=== PATIENT | female | born 1975 | race Caucasian/White ===

== ENCOUNTER 2020-10-08 09:59 | Emergency (ER) | payer OTHER, SELFPAY ==
[2020-10-08 10:45] VITALS: BP 122/86; PULSE 85; RESP 18; TEMP 36.5; O2SAT 97; BMI 27.9
[2020-10-08 11:20] VITALS: BP 124/80; PULSE 90; RESP 18; O2SAT 99
--- NOTE | 2020-10-08 11:27 | HMH.EDGENADL ---
ED Disposition Clinical Impression: Viral upper respiratory infection Disposition: Home, Self-Care Condition on Discharge: Good Additional Instructions: Call back to the emergency department in 3 hrs to obtain your COVID-19 test result. Quarantine yourself until you obtain your result. Tylenol or ibuprofen for pain or fever. Rest, drink plenty of fluids. Referrals: Deandre Benítez [Primary Care Provider] - - Critical Care Critical Care Time: No Attestation: On 10/08/20, the high probability of a clinically significant, sudden or life threatening deterioration of the following system(s) required my full and direct attention, intervention and personal management. The time I documented below is in addition to time spent performing reported procedures but includes the following listed in this critical care notation. Medical Decision Making - Nba Inquiry Pt receiving controlled substance: No Vital Signs: 10/08/20 10:45 10/08/20 11:20 10/08/20 11:41 Temperature 97.7 F Temperature Source Oral Pulse Rate Pulse Rate [Right Radial] 85 90 71 Respiratory Rate 18 18 18 Blood Pressure Blood Pressure [Right Arm] 122/86 124/80 104/81 L Blood Pressure Mean [Right Arm] 98 94 88 Blood Pressure Source Blood Pressure Source [Right Arm] Automatic Cuff Blood Pressure Position Blood Pressure Position [Right Arm] Sitting 02 Sat by Pulse Oximetry 97 99 95 Oxygen Delivery Method Room Air Room Air Room Air 10/08/20 13:08 Temperature 97.7 F Temperature Source Oral Pulse Rate 78 Pulse Rate [Right Radial] Respiratory Rate 20 Blood Pressure 132/90 Blood Pressure [Right Arm] Blood Pressure Mean [Right Arm] Blood Pressure Source Automatic Cuff Blood Pressure Source [Right Arm] Blood Pressure Position Sitting Blood Pressure Position [Right Arm] 02 Sat by Pulse Oximetry Oxygen Delivery Method Room Air - Lab Data Lab results reviewed: Yes: I reviewed the patient's lab results. Lab Results 10/08/20 11:49: Influenza Type A Ag Negative, Influenza Type B Ag Negative 10/08/20 11:49: Group A Strep Rapid Negative Orders (Tests/Meds): ORDERS Category Date Time Status Strep Screen Confirmation Stat Micro 10/08/20 11:49 Received - Radiology Data #1 Image(s): Chest Image Reviewed: Yes I have reviewed radiologist's interpretation PROCEDURE: XR CHEST 2V CLINICAL HISTORY: cough, soa current smoker COMPARISON: No exams were available for comparison FINDINGS: The cardiomediastinal silhouette and pulmonary vascularity are within normal limits. The lungs are clear without infiltrates, suspicious nodules, or pleural effusions. There is a small nodular density left lateral chest likely an evolving partially calcified granuloma. There are tiny partially calcified left hilar nodes. No acute bony abnormalities. IMPRESSION: No acute findings. Dictated by: Dr. Kirill Villalta MD 10/08/2020 12:24 Dr. Kirill Villalta MD in [place] 10/08/2020 12:24 General Adult HPI - General Chief complaint: Weakness Stated complaint: weak, sore throat, Time Seen by Provider: 10/08/20 11:28 Mode of Arrival: Ambulatory Limitations: No Limitations Description of Symptoms (Recalled from ER Triage Doc. by RN): Pt reports generalized weakness, no energy since Friday of last week, reports began having sore throat today. States has had periods of waking up SOA in the middle of the night. No distress noted. - History of Present Illness HPI narrative: Began getting ill on Friday 4 days ago. Chief complaint is a sore throat. Also has a cough, intermittent shortness of breath, diarrhea, headache, body aches. Says she has no way to check her temperature. No known exposure to COVID-19 or any other illnesses. She was tested for COVID-19 a couple of months ago because her son was getting a surgical procedure, otherwise has not been tested. - Related Data Allergies Allergy/AdvReac T
--- NOTE | 2020-10-08 11:37 | XR_ITS ---
PROCEDURE: XR CHEST 2V CLINICAL HISTORY: cough, soa current smoker COMPARISON: No exams were available for comparison FINDINGS: The cardiomediastinal silhouette and pulmonary vascularity are within normal limits. The lungs are clear without infiltrates, suspicious nodules, or pleural effusions. There is a small nodular density left lateral chest likely an evolving partially calcified granuloma. There are tiny partially calcified left hilar nodes. No acute bony abnormalities. IMPRESSION: No acute findings. Dictated by: Dr. Kirill Villalta MD 10/08/2020 12:24 Dr. Kirill Villalta MD in [place] 10/08/2020 12:24
[2020-10-08 11:41] VITALS: BP 104/81; PULSE 71; RESP 18; O2SAT 95
--- NOTE | 2020-10-08 11:51 | PC.NURSE ---
swabs sent to lab.
[2020-10-08 12:05] LABS: Strep Scrn Group A (Rapid) Negative (Negative)
[2020-10-08 13:08] VITALS: BP 132/90; PULSE 78; RESP 20; TEMP 36.5; O2SAT 95
== END 2020-10-08 13:11 | disposition home or self-care (01) ==
PROVIDERS: Emergency Provider Emergency Medicine; PCP Pediatrics
DX: Z20.822 Contact with and (suspected) exposure to COVID-19 (principal); J06.9 Acute upper respiratory infection, unspecified
CPT/HCPCS: 71046; 87275; 87276; 87430; 99283; U0003

== ENCOUNTER → 2020-10-08 12:55 | Outpatient (CLI) | payer OTHER, SELFPAY ==
[2020-10-08 14:31] LABS: Microscopic, Urine URINE MICROSCOPIC (MICROSCOPIC)
[2020-10-08 14:41] LABS: Chloride 105 mmol/L (98-107); Potassium 3.8 mmoL/L (3.5-5.1); Sodium 138 mmol/L (136-145)
[2020-10-08 14:42] LABS: Appearance,Urine CLEAR (Clear); Bilirubin,Urine Negative (Negative); Blood, Urine Negative (Negative); Color,Urine YELLOW (Yellow); Glucose,Urine (UA) Negative (Negative); Ketones,Urine Negative (Negative); Leukocyte Esterase,Urine Negative (Negative); Nitrate,Urine Negative (Negative); PH,Urine 6.5 (5.0-8.5); Protein,Urine Negative (Negative); Specific Gravity, Urine 1.015 (1.005-1.030); Urobilinogen,Urine 0.2 EU/dl (0.2)
[2020-10-08 14:44] LABS: Alanine Aminotransferase 17 U/L (12-78); Albumin Level 4.6 g/dl (3.5-5.0); Albumin/Globulin Ratio 1.4 (1.1-1.8); Alkaline Phosphatase 82 U/L (38-126); Anion Gap 10.8 mEq/L (5-15); Aspartate Amino Transferase 25 U/L (14-36); Bilirubin,Total 0.5 mg/dl (0.2-1.3); Blood Urea Nitrogen 8 mg/dl (7-17); Carbon Dioxide 26 mmol/L (22.0-30.0); Cholesterol 212 mg/dl (140-200); Estimated Glomerular Filt Rate 110 ml/min (>60); GFR (African American) 133 ML/MIN (>60); Globulin 3.2 g/dL (1.3-3.2); Total Protein,Serum 7.8 g/dl (6.3-8.2); Triglycerides 71 mg/dl (30-150); VLDL Cholesterol 14 mg/dL (0-40)
[2020-10-08 14:45] LABS: Calcium 9.5 mg/dl (8.4-10.2); Glucose 90 mg/dl (74-100); HDL Cholesterol 70 mg/dl (40-60)
[2020-10-08 14:52] LABS: RBC,Urine Occasional #/hpf (0-3); Squamous Epithelial Cell,Urine Occasional #/hpf (0-5)
[2020-10-08 14:56] LABS: Direct LDL Cholesterol 105.31 mg/dL (100-129)
[2020-10-08 14:57] LABS: Basophils # 0.1 K/mm3 (0-0.2); Basophils % 0.8 % (0.1-2.0); Eosinophils # 0.1 K/mm3 (0.0-0.4); Eosinophils % 1.2 % (0.1-12.0); Hematocrit 43.6 % (37.0-47.0); Hemoglobin 14.9 g/dL (12.2-16.2); Lymphocytes # 2.1 K/mm3 (0.7-4.5); Mean Corpuscular HGB Conc 34.2 g/dL (31.8-35.4); Mean Corpuscular Hemoglobin 32.5 pg (27.0-31.2); Mean Platelet Volume 8.4 fl (7.4-10.4); Monocytes # 0.4 K/mm3 (0.1-1.0); Monocytes % 5.8 % (1.7-9.3); Neutrophils # 4.3 K/mm3 (1.8-7.8); Neutrophils % 62.1 % (37.0-80.0); Platelet Count 333 K/mm3 (142-424); Red Blood Count 4.59 M/mm3 (4.20-5.40); Red Cell Distribution Width 13.2 % (11.5-17.5)
[2020-10-08 15:46] LABS: 25-OH Vitamin D, Total 28.8 ng/mL (30-100)
== END ==
PROVIDERS: PCP Pediatrics; Visit Provider Pediatrics
DX: R53.83 Other fatigue (principal); I10 Essential (primary) hypertension; E55.9 Vitamin D deficiency, unspecified; R35.1 Nocturia
CPT/HCPCS: 80053; 80061; 81001; 82306; 84443; 85025

== ENCOUNTER → 2021-03-15 07:55 | Outpatient (CLI) | payer OTHER, SELFPAY ==
--- NOTE | 2021-03-15 08:01 | XR_ITS ---
PROCEDURE: XR SHOULDER RT MIN 2V CLINICAL INDICATION: right shoulder pain COMPARISON: No exams were available for comparison FINDINGS: No fracture or dislocation. No lytic or blastic change. There is normal mineralization. The joint spaces are well-preserved. No significant degenerative/arthritic changes. No erosive changes evident. Other findings:None. IMPRESSION: No acute findings. Dictated by: Spencer Bradshaw MD 03/15/2021 08:41 Spencer Bradshaw MD in [place] 03/15/2021 08:41
== END ==
PROVIDERS: PCP Nurse Practitioner Family; Visit Provider Orthopaedic Surgery
DX: M25.511 Pain in right shoulder (principal)
CPT/HCPCS: 73030

== ENCOUNTER → 2021-03-17 07:43 | Outpatient (CLI) | payer OTHER, SELFPAY ==
--- NOTE | 2021-03-17 07:43 | MR_ITS ---
PROCEDURE INFORMATION: Exam: MR Right Upper Extremity Joint Without Contrast; Shoulder Exam date and time: 03/17/2021 7:43 AM Age: 45 years old Clinical indication: Pain and injury or trauma; Other: Jerking injury to RT arm; Sprain or strain; Right; Injury details: PT injured RT shoulder about 1 month ago her dog on a leash pulled the RT arm back too far. This is being done to evaluate rotator cuff. ; Additional info: Evaluate for rotator cuff tear TECHNIQUE: Imaging protocol: MR of the Right upper extremity without contrast. Exam focused on the shoulder. COMPARISON: CR XR SHOULDER RT MIN 2V 03/15/2021 8:13 AM FINDINGS: Bones/joints: No acute fracture. No dislocation. Early degenerative changes of acromioclavicular joint. Fluid: No significant joint effusion. Small to moderate fluid within subacromial-subdeltoid bursa. Glenoid labrum: No definite tear. Supraspinatus tendon: Moderate tendinosis. Probable 0.6 x 0.5 x 0.1 cm intrasubstance tear of posterior tendon at attachment on tuberosity. Infraspinatus tendon: Moderate tendinosis. No definite tear. Subscapularis tendon: Mild tendinosis. No definite tear. Teres minor tendon: No definite tear. Tendon of biceps brachii: Intact. Glenohumeral ligaments: Grossly intact. Muscles: Unremarkable. Soft tissues: Unremarkable. IMPRESSION: Rotator cuff tendinosis.
== END ==
PROVIDERS: PCP Nurse Practitioner Family; Visit Provider Orthopaedic Surgery Sports Medicine
DX: M25.511 Pain in right shoulder (principal)
CPT/HCPCS: 73221

== ENCOUNTER → 2021-09-05 17:49 | Outpatient (CLI) | payer OTHER, SELFPAY | PROVIDERS: PCP Emergency Medicine; Visit Provider Nurse Practitioner | DX: Z20.822 Contact with and (suspected) exposure to COVID-19 (principal) | CPT/HCPCS: C9803; U0003; U0005 ==

== ENCOUNTER → 2021-10-08 20:19 | Outpatient (CLI) | payer SELFPAY | PROVIDERS: Visit Provider Nurse Practitioner Family | DX: Z20.822 Contact with and (suspected) exposure to COVID-19 (principal) | CPT/HCPCS: C9803; U0003; U0005 ==

== ENCOUNTER 2021-10-15 03:42 | Emergency (ER) | payer SELFPAY ==
[2021-10-15 03:43] VITALS: BP 155/93; PULSE 96; RESP 16; TEMP 36.7; O2SAT 98; BMI 34.7
--- NOTE | 2021-10-15 04:07 | HMH.EDGENADL ---
ED Disposition Clinical Impression: Right ear pain Disposition: Home, Self-Care Condition on Discharge: Good Additional Instructions: Please take nasal decongestant at home, you can chew gum to assist with the pain, pain gets worse, you are having issues with numbness, tingling, weakness, worsening pain please return to the ED. Referrals: Servando Yung MD [Primary Care Provider] - - Critical Care Critical Care Time: No Attestation: On 10/15/21, the high probability of a clinically significant, sudden or life threatening deterioration of the following system(s) required my full and direct attention, intervention and personal management. The time I documented below is in addition to time spent performing reported procedures but includes the following listed in this critical care notation. Medical Decision Making - Medical Records Medical records reviewed: Yes: I reviewed the patient's medical records. - Nba Inquiry Pt receiving controlled substance: No Vital Signs: 10/15/21 03:43 Temperature 98.0 F Temperature Source Oral Pulse Rate [Right Radial] 96 H Respiratory Rate 16 Blood Pressure [Right Arm] 155/93 H Blood Pressure Mean [Right Arm] 113 Blood Pressure Source [Right Arm] Automatic Cuff Blood Pressure Position [Right Arm] Sitting 02 Sat by Pulse Oximetry 98 Oxygen Delivery Method Room Air Orders (Tests/Meds): ED MEDICATIONS Discontinued Medications Generic Name Dose Route Start Last Admin Trade Name Alexus PRN Reason Stop Dose Admin Ketorolac Tromethamine 15 mg 10/15/21 04:06 Ketorolac 30mg/Ml Vial IM 10/15/21 04:07 ONCE ONE Medical Decision Narrative: Patient is a 45-year-old female who presents to the ED today for evaluation of right-sided ear pain. Patient is well-appearing on initial evaluation, hypertensive but no other significant alterations in vital signs. Unclear etiology of the patient's pain as on exam there is no reena evidence of perforation of the eardrum, although had difficulty seeing the right lower quadrant, and there could be a microperforation of the area. Patient has cerumen in the proximal portion of the ear canal which is likely pushed back by Q-tip, canal is not erythematous or inflamed, there is no evidence of effusion posterior to the ear, there is no subcutaneous air along the neck, there is no pain over the great vessels of the neck, patient does not have any bruising over the right side of the face. We will administer 50 mg of IM Toradol, as patient is complaining of significant pain, will reassess. Toradol has assisted with patient pain, have discussed the usage of nasal decongestants, chewing gum in order to assist with eustachian tube dysfunction, not putting anything else in the ear, patient to follow-up with primary care, will return to the ED with any new or worsening symptoms, discussed with the patient that the only other work-up that we may be able to do would be a CT scan, however I did not believe it was a fever for full, patient is in agreement with this, but will return with worsening symptoms. General Adult HPI - General Chief complaint: Ear Stated complaint: Right earache Time Seen by Provider: 10/15/21 04:00 Mode of Arrival: Ambulatory Limitations: No Limitations Description of Symptoms (Recalled from ER Triage Doc. by RN): Pt reports waking at 2am with right ear pain. She says he had sneezed at some point yesterday and felt a pop in that ear. Pt says she has been dealing with a cold since friday. - History of Present Illness HPI narrative: Patient is a 45-year-old female presents the ED today with ear pain. Patient states that her ear began to hurt after a sneeze earlier today, states that it woke her up from sleep tonight with sharp pain around the ear on the right side, states that she has not had pain like this before, states that it is worse with jaw motion, states that she sneezes it hurts much worse. Patient states that she at
[2021-10-15 04:35] VITALS: BP 127/82; PULSE 84; RESP 16; TEMP 36.6; O2SAT 98
== END 2021-10-15 04:40 | disposition home or self-care (01) ==
PROVIDERS: Emergency Provider Student in an Organized Health Care Education/Training Program; PCP Emergency Medicine
DX: H92.01 Otalgia, right ear (principal); J45.909 Unspecified asthma, uncomplicated; F41.8 Other specified anxiety disorders; F17.210 Nicotine dependence, cigarettes, uncomplicated
CPT/HCPCS: 96372; 99281

== ENCOUNTER → 2021-10-25 16:51 | Outpatient (CLI) | payer OTHER, SELFPAY | PROVIDERS: Visit Provider Nurse Practitioner | DX: Z20.822 Contact with and (suspected) exposure to COVID-19 (principal) | CPT/HCPCS: C9803; U0003; U0005 ==

== ENCOUNTER 2022-05-01 11:19 | Emergency (ER) | payer BC, SELFPAY ==
--- NOTE | 2022-05-01 11:32 | HMH.EDUTC ---
[facility] Disposition Clinical Impression: Viral syndrome, Exposure to COVID-19 virus Disposition: Home, Self-Care Condition on Discharge: Good Instructions: DI for Viral Syndrome, DI for COVID-19 (Suspected or Confirmed ), Preventing the Spread of Coronavirus Discharge Instructions Additional Instructions: Drink plenty of fluids. Take tylenol or ibuprofen for pain or fever. Take the medications as directed. Follow up with your regular doctor. GO TO THE ER FOR ANY WORSENING SYMPTOMS Quarantine until you know the results of your covid-19 test. Notify your school or workplace of your results and follow their instructions regarding return to work/school. Prescriptions: Ondansetron [Zofran 4mg ODT] 4 mg PO Q8HP PRN #20 tab PRN Reason: Nausea Transmission Status: Received by [id number] Benzonatate [Benzonatate 100mg cap] 100 mg PO TIDP PRN #30 cap PRN Reason: Cough [id number] Referrals: Forrest Rodriguez MD [Primary Care Provider] - Forms: Work/School Release Time of Disposition: 11:55 Medical Decision Making - Medical Records Medical records reviewed: No: I reviewed the patient's medical records. - Nba Inquiry Pt receiving controlled substance: No Vital Signs: 05/01/22 11:39 05/01/22 12:02 Temperature 98.2 F 98.2 F Temperature Source Oral Pulse Rate 96 H Pulse Rate [Left] 96 H Respiratory Rate 18 18 Blood Pressure 120/75 Blood Pressure [Right Arm] 120/75 Blood Pressure Mean [Right Arm] 90 02 Sat by Pulse Oximetry 100 Orders (Tests/Meds): ORDERS Category Date Time Status Covid-19 Nasal PCR ([facility]) Routine Lab 05/01/22 11:34 Received [facility] HPI - General Stated complaint: covid test Time Seen by Provider: 05/01/22 11:33 - History of Present Illness Provider Complaint: She states that since yesterday she has had chills, low grade fever, body aches, and chest congestion with a nonproductive cough. - Related Data Previous Rx's Medication Instructions Recorded cefdinir 300 mg capsule 300 mg PO BID 10 Days #20 cap 10/15/21 hydrocodone 10 mg-acetaminophen 1 tab PO Q8H PRN #20 tab 11/09/21 325 mg tablet buspirone 15 mg tablet 15 mg PO BID #90 tab 11/24/21 amitriptyline 25 mg tablet See Rx Instructions .ROUTE 01/29/22 .COMPLEX #90 tab escitalopram oxalate 20 mg tablet See Rx Instructions .ROUTE 01/29/22 .COMPLEX #90 tab losartan 50 mg-hydrochlorothiazide See Rx Instructions .ROUTE 01/29/22 12.5 mg tablet .COMPLEX #90 tab estradiol 2 mg tablet See Rx Instructions .ROUTE 02/05/22 .COMPLEX #90 tablet Benzonatate [Benzonatate 100mg 100 mg PO TIDP PRN #30 cap 05/01/22 cap] Ondansetron [Zofran 4mg ODT] 4 mg PO Q8HP PRN #20 tab 05/01/22 Allergies Allergy/AdvReac Type Severity Reaction Status Date / Time No Known Allergies Allergy Verified 05/01/22 11:41 [facility] History - Hepatitis A Screen Attestation statement:: This patient has been screened for Hepatitis A risk factors. I have reviewed the patient's past medical history: Yes Medical History: Reports:: Anxiety, Asthma, Depression, Kidney Stones, Migraine Other Surgeries: Yes: Hysterectomy-Total Amputation: No Fractures: No - Social History Smoking Status: Current every day smoker Tobacco Type: cigarettes # Packs/Day (cigarettes): 1 Alcohol Intake: current Alcohol Intake Frequency:: a few times a week Substance Use Type: denies use Occupational Status: employed - Psychiatric History Pschychiatric History:: Reports:: Anxiety, Depression Family Hx:: Diabetes ROS Obtained: Yes All systems reviewed & no additional complaints - Constitutional Constitutional: Reports as per HPI - Eyes Eyes: Denies eye discharge - ENT Ears, Nose, Mouth, and Throat: Reports as per HPI - Cardiovascular Cardiovascular: Denies chest pain - Respiratory Respiratory: Reports chest congestion, Denies dyspnea, Denies stridor, Denies
[2022-05-01 11:39] VITALS: BP 120/75; PULSE 96; RESP 18; TEMP 36.8; O2SAT 100; BMI 33.2
[2022-05-01 12:02] VITALS: BP 120/75; PULSE 96; RESP 18; TEMP 36.8
== END 2022-05-01 12:07 | disposition home or self-care (01) ==
PROVIDERS: Emergency Provider Nurse Practitioner Family; PCP Family Medicine
DX: B34.9 Viral infection, unspecified (principal); R50.9 Fever, unspecified; R05.9 Cough, unspecified; R09.89 Other specified symptoms and signs involving the circulatory and respiratory systems; F17.210 Nicotine dependence, cigarettes, uncomplicated; Z20.822 Contact with and (suspected) exposure to COVID-19
CPT/HCPCS: 99212; C9803; G0463; U0003; U0005

== ENCOUNTER 2022-06-04 15:43 | Emergency (ER) | payer BC, SELFPAY ==
[2022-06-04 16:19] VITALS: BP 136/75; PULSE 105; RESP 16; TEMP 37.3; O2SAT 100; BMI 34.3
--- NOTE | 2022-06-04 16:19 | EXP.UTC ---
Discharge Plan Disposition Patient Disposition: Home, Self-Care Condition: Good Prescriptions Prescriptions: New benzonatate [benzonatate] 100 mg capsule 100 mg PO TIDP PRN (Reason: Cough) Qty: 30 0RF methylprednisolone 4 mg Tablets,Dose Pack 4 mg PO DIRECTED Qty: 21 0RF azithromycin [Zithromax] 250 mg tablet 250 mg PO UD DOSE PK Qty: 6 0RF Rx Instructions: Take two (2) tablets today, then one (1) tablet days #2 thru #5 No Action cefdinir 300 mg capsule 300 mg PO BID 10 Days Qty: 20 0RF estradiol 2 mg tablet See Rx Instructions .ROUTE .COMPLEX Qty: 90 2RF Dose Instruction: Take 1 tab once daily Rx Instructions: Take 1 tab once daily losartan-hydrochlorothiazide 50-12.5 mg tablet See Rx Instructions .ROUTE .COMPLEX Qty: 90 0RF Dose Instruction: TAKE ONE TABLET BY MOUTH DAILY Rx Instructions: TAKE ONE TABLET BY MOUTH DAILY escitalopram oxalate 20 mg tablet See Rx Instructions .ROUTE .COMPLEX Qty: 90 0RF Dose Instruction: TAKE ONE TABLET BY MOUTH DAILY Rx Instructions: TAKE ONE TABLET BY MOUTH DAILY amitriptyline 25 mg tablet See Rx Instructions .ROUTE .COMPLEX Qty: 90 0RF Dose Instruction: TAKE ONE TABLET BY MOUTH DAILY Rx Instructions: TAKE ONE TABLET BY MOUTH DAILY buspirone 15 mg tablet 15 mg PO BID Qty: 90 2RF hydrocodone-acetaminophen 10-325 mg tablet 1 tab PO Q8H PRN (Reason: pain) Qty: 20 0RF benzonatate 100 MG capsule 100 mg PO TIDP PRN (Reason: Cough) Qty: 30 0RF ondansetron 4 MG tablet,disintegrating 4 mg PO Q8HP PRN (Reason: Nausea) Qty: 20 0RF Referrals Follow up/Referrals: Forrest Rodriguez MD [Primary Care Provider] - See instructions Activity Restrictions/Add. Instructions Additional Instructions/Restrictions: Drink plenty of fluids. Take tylenol or ibuprofen for pain or fever. Take the medications as directed. Follow up with your regular doctor. GO TO THE ER FOR ANY WORSENING SYMPTOMS Quarantine until you know the results of your covid-19 test. Notify your school or workplace of your results and follow their instructions regarding return to work/school. Clinical Impressions Clinical Impression: Sinusitis, Bronchitis, Exposure to 2019 novel coronavirus Stand Alone Forms Stand Alone Forms: Work/School Release Instructions Patient Instructions: Sinusitis, DI for Sinusitis, Coronavirus Disease 2019, Preventing the Spread of Coronavirus Discharge Instructions Discharge ED Provider: Spencer Carrera [facility] HPI General Stated complaint: FEVER,SORE THROAT BODY ACHES Time Seen by Provider: 06/04/22 16:19 History of Present Illness Provider Complaint: She c/o sinus congestion, sore throat and malaise for the past 2 days. Related Data Previous Rx's Medication Instructions Recorded cefdinir 300 mg capsule 300 mg PO BID 10 days #20 caps 10/15/21 estradiol 2 mg tablet See Rx Instructions .Route 02/05/22 .COMPLEX #90 tabs benzonatate 100 mg capsule 100 mg PO TIDP PRN Cough #30 caps 05/01/22 ondansetron 4 mg disintegrating 4 mg PO Q8HP PRN Nausea #20 tabs 05/01/22 tablet amitriptyline 25 mg tablet See Rx Instructions .Route 05/13/22 .COMPLEX #90 tabs escitalopram oxalate 20 mg tablet See Rx Instructions .Route 05/13/22 .COMPLEX #90 tabs losartan 50 mg-hydrochlorothiazide See Rx Instructions .Route 05/13/22 12.5 mg tablet .COMPLEX #90 tabs buspirone 15 mg tablet 15 mg PO BID #90 tabs 05/21/22 hydrocodone 10 mg-acetaminophen 1 tab PO Q8H PRN pain #20 tabs 05/21/22 325 mg tablet azithromycin 250 mg tablet 250 mg PO UD DOSE PK #6 tabs 06/04/22 (Zithromax) benzonatate 100 mg capsule 100 mg PO TIDP PRN Cough #30 caps 06/04/22 methylprednisolone 4 mg tablets in 4 mg PO DIRECTED #21 tabs 06/04/22 a dose pack Allergies Allergy/AdvReac Type Severity Reaction Status Date / Time No Known Allergies Allergy Verified 06/04/22 16:21 [facility]
[2022-06-04 16:22] LABS: UTC Strep Screen (Rapid) Negative (Negative)
[2022-06-04 17:00] LABS: UTC Influenza A Antigen Negative (Negative)
[2022-06-04 17:01] LABS: UTC Influenza B Antigen Negative (Negative)
[2022-06-04 17:21] VITALS: BP 136/75; PULSE 105; RESP 16; TEMP 37.3
[2022-06-04 17:44] LABS: Adenovirus,PCR Not Detected (NotDetected); Bordetella Pertussis Not Detected (NotDetected); Chlamydophila Pneumoniae, PCR Not Detected (NotDetected); Coronavirus 19, PCR Not Detected (NotDetected); Coronavirus 229E Not Detected (NotDetected); Coronavirus NL63 Not Detected (NotDetected); Coronavirus OC43 Not Detected (NotDetected); Coronovirus HKU1,PCR Not Detected (NotDetected); Human Metapneumovirus Not Detected (NotDetected); Influenza A, PCR Not Detected (NotDetected); Influenza AH1, 2009 Not Detected (NotDetected); Influenza AH1, PCR Not Detected (NotDetected); Influenza AH3,PCR Not Detected (NotDetected); Influenza B, PCR Not Detected (NotDetected); Mycoplasma Pneumoniae, PCR Not Detected (NotDetected); Parainfluenza 1, PCR Not Detected (NotDetected); Parainfluenza 2, PCR Not Detected (NotDetected); Parainfluenza 3, PCR Not Detected (NotDetected); Parainfluenza 4, PCR Not Detected (NotDetected); Respiratory Syncytial Virus Not Detected (NotDetected); Rhinovirus/Enterovirus Not Detected (NotDetected)
== END 2022-06-04 17:22 | disposition home or self-care (01) ==
PROVIDERS: Emergency Provider Nurse Practitioner Family; PCP Family Medicine
DX: J02.9 Acute pharyngitis, unspecified (principal); R50.9 Fever, unspecified; M79.10 Myalgia, unspecified site; R09.81 Nasal congestion; R11.0 Nausea; R53.81 Other malaise; Z20.822 Contact with and (suspected) exposure to COVID-19; R05.9 Cough, unspecified; F17.210 Nicotine dependence, cigarettes, uncomplicated; Z79.52 Long term (current) use of systemic steroids; Z79.890 Hormone replacement therapy; Z79.899 Other long term (current) drug therapy
CPT/HCPCS: 87581; 87632; 87798; 87804; 87880; 96372; 99213; C9803; G0463; J0696; U0003; U0005

== ENCOUNTER → 2022-07-23 14:32 | Outpatient (CLI) | payer BC, SELFPAY ==
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
== END ==
PROVIDERS: PCP Family Medicine; Visit Provider Family Medicine
DX: M79.672 Pain in left foot (principal)
CPT/HCPCS: 73610; 73630

== ENCOUNTER 2023-03-10 17:23 | Emergency (ER) | payer BC, SELFPAY ==
[2023-03-10 17:25] VITALS: BP 193/109; PULSE 96; RESP 18; TEMP 36.8; O2SAT 98; BMI 32.1
--- NOTE | 2023-03-10 17:28 | XR_ITS ---
PROCEDURE INFORMATION: Exam: XR Right Hand Exam date and time: 03/10/2023 5:35 PM Age: 47 years old Clinical indication: Pain; Hand; Right TECHNIQUE: Imaging protocol: Radiologic exam of the right hand. Views: 3 or more views. COMPARISON: No relevant prior studies available. FINDINGS: Bones/joints: No acute fracture or dislocation. Soft tissues: Normal. IMPRESSION: No acute fracture or dislocation.
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
[2023-03-10 18:18] VITALS: BP 193/109; PULSE 96; RESP 18; TEMP 36.8; O2SAT 98
== END 2023-03-10 18:19 | disposition home or self-care (01) ==
PROVIDERS: Emergency Provider Nurse Practitioner; PCP Family Medicine
DX: S60.011A Contusion of right thumb without damage to nail, initial encounter (principal); V86.95XA Unspecified occupant of 3- or 4- wheeled all-terrain vehicle (ATV) injured in nontraffic accident, initial encounter; F17.210 Nicotine dependence, cigarettes, uncomplicated; S40.812A Abrasion of left upper arm, initial encounter
CPT/HCPCS: 73130; 99212; 99213; 99214; G0463

== ENCOUNTER 2023-11-26 18:36 | Outpatient (CLI) | payer BC, SELFPAY ==
[2023-11-26 18:12] LABS: Alanine Aminotransferase 20 U/L (12-78); Albumin Level 4.1 g/dl (3.5-5.0); Albumin/Globulin Ratio 1.4 (1.1-1.8); Alkaline Phosphatase 100 U/L (38-126); Anion Gap 10.4 mEq/L (5-15); Aspartate Amino Transferase 27 U/L (14-36); Bilirubin,Total 0.4 mg/dl (0.2-1.3); Blood Urea Nitrogen 11 mg/dl (7-17); Calcium 9.1 mg/dl (8.4-10.2); Carbon Dioxide 22 mmol/L (22.0-30.0); Chloride 108 mmol/L (98-107); Estimated Glomerular Filt Rate 77 ml/min (>60); GFR (African American) 93 ML/MIN (>60); Glucose 89 mg/dl (74-100); Potassium 4.4 mmoL/L (3.5-5.1); Sodium 136 mmol/L (136-145); Total Protein,Serum 7.1 g/dl (6.3-8.2)
== END 2023-11-26 23:59 ==
LOC: LAB.DROPOF 18:36
PROVIDERS: PCP Family Medicine; Visit Provider Family Medicine
DX: I10 Essential (primary) hypertension (principal); G56.00 Carpal tunnel syndrome, unspecified upper limb; R10.9 Unspecified abdominal pain
CPT/HCPCS: 80053; 84443

== ENCOUNTER 2023-12-01 08:49 | Outpatient (CLI) | payer BC, SELFPAY ==
--- NOTE | 2023-12-01 08:50 | US_ITS ---
FINAL REPORT CLINICAL HISTORY: RUQ pain COMPARISON: None FINDINGS: Sonographic images of the right upper quadrant were obtained. The pancreas is partially obscured. There is increased echogenicity in the liver consistent with fatty infiltration. The gallbladder appears normal without evidence of gallstones.There is no evidence of biliary ductal dilatation.The common duct measures 3 mm. Limited images of the right kidney are unremarkable. IMPRESSION: Increased echogenicity in the liver consistent with fatty infiltration. Reviewed, Interpreted and Dictated by Rusty Correa III, MD Transcribed by Liz Church Authenticated and [facility]
== END 2023-12-01 23:59 ==
LOC: RAD 08:49
PROVIDERS: PCP Family Medicine; Visit Provider Family Medicine
DX: R10.11 Right upper quadrant pain (principal)
CPT/HCPCS: 76705

== ENCOUNTER 2024-11-19 10:00 | Outpatient (CLI) | payer BC, SELFPAY ==
[2024-11-19 18:35] LABS: Albumin Level 4.2 g/dl (3.5-5.0); Chloride 105 mmol/L (98-107)
[2024-11-19 18:36] LABS: Potassium 4.2 mmoL/L (3.5-5.1); Sodium 138 mmol/L (136-145)
[2024-11-19 18:37] LABS: Hemoglobin A1C 5.8 % (4.0-6.0)
[2024-11-19 18:38] LABS: Alanine Aminotransferase 30 U/L (12-78); Albumin/Globulin Ratio 1.7 (1.1-1.8); Alkaline Phosphatase 70 U/L (38-126); Anion Gap 13.2 mEq/L (5-15); Aspartate Amino Transferase 30 U/L (14-36); Bilirubin,Total 0.3 mg/dl (0.2-1.3); Blood Urea Nitrogen 12 mg/dl (7-17); Carbon Dioxide 24 mmol/L (22.0-30.0); Estimated Glomerular Filt Rate 90 ml/min (>60); GFR (African American) 109 ML/MIN (>60); Globulin 2.5 g/dL (1.3-3.2); Total Protein,Serum 6.7 g/dl (6.3-8.2)
[2024-11-19 18:39] LABS: Calcium 9.3 mg/dl (8.4-10.2); Chol/HDL Ratio 2.6 (1-3.5); Cholesterol 169 mg/dl (140-200); Glucose 96 mg/dl (74-100); HDL Cholesterol 64 mg/dl (40-60); Triglycerides 118 mg/dl (30-150); VLDL Cholesterol 24 mg/dL (0-40)
[2024-11-19 18:58] LABS: Direct LDL Cholesterol 84.83 mg/dL (100-129)
[2024-11-19 19:11] LABS: Thyroid Stimulating Hormone 0.71 uIU/mL (0.465-4.68)
== END 2024-11-19 23:59 | disposition home or self-care (01) ==
LOC: LAB.DROPOF 11-20 11:51
PROVIDERS: PCP Family Medicine; Visit Provider Family Medicine
DX: R53.83 Other fatigue (principal); K76.0 Fatty (change of) liver, not elsewhere classified; R63.5 Abnormal weight gain; Z68.37 Body mass index [BMI] 37.0-37.9, adult; I10 Essential (primary) hypertension; Z79.899 Other long term (current) drug therapy
CPT/HCPCS: 80053; 80061; 83036; 84436; 84443

== ENCOUNTER 2025-08-31 08:18 | Outpatient (CLI) | payer BC, SELFPAY ==
[2025-08-31 16:34] LABS: Coronavirus 19, PCR Not Detected (NotDetected); Influenza A, PCR Not Detected (NotDetected); Influenza B, PCR Not Detected (NotDetected)
== END 2025-08-31 23:59 ==
LOC: LAB.DROPOF 09-02 08:19
PROVIDERS: PCP Family Medicine; Visit Provider Student in an Organized Health Care Education/Training Program
DX: J06.9 Acute upper respiratory infection, unspecified (principal); R50.9 Fever, unspecified
CPT/HCPCS: 87631